=== PATIENT | female | born 2000 | race Caucasian/White ===

== ENCOUNTER 2019-07-07 18:39 | Emergency (ER) | payer OTHER ==
--- NOTE | 2019-07-07 18:44 | UC ---
Ear Complaint HPI - HPI Summary HPI Summary: 19 yo female presents with RIGHT ear pain. She tells me that this morning she blew her nose and felt a pop in her right ear with instant pain. Since that time has had pain and decreased hearing out of the right ear. Prior to this instance she was feeling well and had no ear pain, but did have some cold symptoms about a week ago. Denies headache, sinus symptoms, sore throat, cough, or drainage from the ear. - History of Current Complaint Stated Complaint: EAR ISSUE Time Seen by Provider: 07/07/19 18:44 Hx Obtained From: Patient Onset/Duration: Sudden Onset Severity Initially: Moderate Severity Currently: Moderate Pain Intensity: 7 Pain Scale Used: 0-10 Numeric - Allergies/Home Medications Allergies/Adverse Reactions: Allergies Allergy/AdvReac Type Severity Reaction Status Date / Time Sulfa (Sulfonamide Allergy Rash Verified 07/07/19 18:49 Antibiotics) Home Medications: Home Medications Sertraline* [Zoloft*] 150 tab PO DAILY 07/07/19 [History Confirmed 07/07/19] PMH/Surg Hx/FS Hx/Imm Hx Psychological History: Anxiety, Depression - Surgical History Surgical History: None - Family History Known Family History: Positive: Unknown - Social History Lives: With Family Alcohol Use: None Substance Use Type: None Smoking Status (MU): Never Smoked Tobacco Review of Systems All Other Systems Reviewed And Are Negative: Yes Constitutional: Positive: Negative Skin: Positive: Negative Eyes: Positive: Negative ENT: Positive: Ear Ache Respiratory: Positive: Negative Cardiovascular: Positive: Negative Neurovascular: Positive: Negative Neurological: Positive: Negative Psychological: Positive: Negative Physical Exam - Summary Physical Exam Summary: GENERAL: NAD. WDWN. No pain distress. SKIN: No rashes, sores, lesions, or open wounds. HEENT: Head: AT/NC Eyes: EOM intact. Conjunctiva clear without inflammation or discharge. Ears: Hearing grossly normal. RIGHT TM with moderate erythema and bulging. TM appears intact without rupture. No canal edema or drainage. NTTP Nose: Nasal mucosa pink and moist. NTTP maxillary and frontal sinus. Throat: Posterior oropharynx without exudates, erythema, or tonsillar enlargement. Uvula midline. NECK: Supple. Nontender. No lymphadenopathy. CHEST: CTAB. No r/r/w. No accessory muscle use. Breathing comfortably and in no distress. CV: RRR. Without m/r/g. Pulses intact. NEURO: Alert. PSYCH: Age appropriate behavior. Triage Information Reviewed: Yes Vital Signs: Vital Signs: Temp Pulse Resp BP Pulse Ox 97.4 F 84 16 124/80 98 07/07/19 18:46 07/07/19 18:46 07/07/19 18:46 07/07/19 18:46 07/07/19 18:46 Vital Signs Reviewed: Yes Ear Complaint Course/Dx - Course Course Of Treatment: Her right ear is significantly injected with bulging - this could be due to barotrauma from blowing her nose or she had an underlying ear infection in which the pain was exacerbated by blowing her nose. I advised her monitor her symptoms the remainder of the evening and into the morning - if her ear pain is still present in the morning or if she has worsening pain to begin the antibiotic for an otitis media. - Differential Dx/Diagnosis Provider Diagnosis: Earache, right Discharge - Sign-Out/Discharge Documenting (check all that apply): Patient Departure All imaging exams completed and their final reports reviewed: No Studies - Discharge Plan Condition: Stable Disposition: HOME Prescriptions: Amoxicillin PO (*) [Amoxicillin 875 MG (*)] 875 mg PO BID #14 tab Patient Education Materials: Earache (ED) Referrals: Non Staff,Doctor [Medical Doctor] - Additional Instructions: If you develop a fever, shortness of breath, chest pain, new or worsening symptoms - please call your PCP or go to the ED immediately. Your ear drum is very irritated this evening - likely from blowing your nose earlier today. The ear drum itself appears intact and did not rupture. If your symptoms have not improved by the morning, please start the antibiotic. - Billing Disposition and Condition Condition: STABLE Disposition: Home - Attestation Statements Provider Attestation: I was available for consult. This patient was seen by the CHRISTINA. The patient was not presented to, seen by, or examined by me. -Stacia
[2019-07-07 18:48] VITALS: BP 124/80
== END 2019-07-07 19:10 | disposition home or self-care (01) ==
LOC: UCEAST 18:39
DX: H92.01 Otalgia, right ear (principal); Z88.2 Allergy status to sulfonamides
CPT/HCPCS: 99202; G0463